=== PATIENT | male | born 1990 | race Two or more races ===

== ENCOUNTER 2021-04-08 21:25 | Emergency (ER) | payer SELFPAY ==
[~2021-04-08] VITALS: Ht 167.6 cm; Wt 72.6 kg
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
[2021-04-08] MEDS ORDERED: oxyCODONE IR immediate release 5 MG ONE (22:22)
[2021-04-08] MEDS ORDERED: TDAP [DIPH/PERTUSSIS/TET] 0.5 ML VIAL IM ONE (22:23)
[2021-04-08] MEDS: oxyCODONE IR immediate release 5 MG PO PRN (22:26)
[2021-04-08] MEDS: TDAP [DIPH/PERTUSSIS/TET] 0.5 ML VIAL IM ONE (22:27)
[2021-04-08] MEDS ORDERED: CLINDAMYCIN 900 MG/6 ML VIAL ONE (22:34)
[2021-04-08] MEDS: CLINDAMYCIN 900 MG in IV D5W 100 ML IV ONE (22:45)
[2021-04-08] MEDS: CEFAZOLIN 1 GM in IV D5W 50 ML IV ONE (22:46)
--- NOTE | 2021-04-08 23:00 | NUR ---
EMT AT BEDSIDE
--- NOTE | 2021-04-08 23:51 | NUR ---
Patient discharged to home in stable condition. Written and verbal after care instructions given. Patient verbalizes understanding of instruction.
[2021-04-09 00:17] VITALS: BP 134/79
== END 2021-04-09 00:05 | disposition home or self-care (01) ==
LOC: ER 21:27
DX: S99.922A Unspecified injury of left foot, initial encounter (principal); Z89.411 Acquired absence of right great toe; Z60.2 Problems related to living alone; W22.8XXA Striking against or struck by other objects, initial encounter; Y93.89 Activity, other specified; Y92.89 Other specified places as the place of occurrence of the external cause; Y99.8 Other external cause status
CPT/HCPCS: 73660; 90471; 90715; 96365; 99284; J0690; J3490 ×2; J7060 ×2